=== PATIENT | male | born 1940 | race Caucasian/White ===

== ENCOUNTER 2023-08-22 02:04 | Observation (INO) | payer MEDICARE, BC, SELFPAY ==
[2023-08-22 02:00] VITALS: BP 228/116; PULSE 105; RESP 18; O2SAT 96
--- NOTE | 2023-08-22 02:18 | CRLHL7_ITS ---
For Patients: As a result of the Cures Act, medical imaging exams and procedure reports are released immediately into your electronic medical record. You may view this report before your referring provider. If you have questions, please contact your health care provider. INDICATION: Altered mental status. TECHNIQUE: Head CT without contrast. COMPARISON: October 2020. FINDINGS: Massive right hemispheric parenchymal hemorrhage versus ventricular hemorrhage filling the near entirety of the right ventricle with significant mass effects with effacement of the right hemisphere and 24 millimeters right to left midline shift. Blood products extend and track into the left lateral ventricular system as well as the 3rd ventricle. Diffuse right hemispheric white matter edema. No acute osseous abnormality. No extracalvarial soft tissue abnormality. The mastoid air cells are clear. The paranasal sinuses are well-aerated. The visualized portions of the orbits and globes are unremarkable. IMPRESSION: Massive right hemispheric parenchymal hemorrhage compressing the right lateral ventricle versus ventricular hemorrhage filling the near entirety of the right lateral ventricle with significant mass effect with effacement of the right hemispheric cortex and 24 millimeters right to left midline shift. Blood products extend and track into the left lateral ventricular system as well as the 3rd ventricle. Diffuse right hemispheric white matter edema. Findings communicated with Dr. Steward at 2:37 a.m. August 22, 2023. Please note that all CT scans at this facility use dose modulation, iterative reconstruction, and/or weight-based dosing when appropriate to reduce radiation dose to as low as reasonably achievable. Dictated by Jersey Hicks MD @ 08/22/2023 2:39:14 AM (Electronically Signed)
--- NOTE | 2023-08-22 02:18 | ED.AMS ---
HPI - Altered Mental Status General Time Seen by Provider: 01:58 Date Seen: 08/22/23 Chief Complaint: Altered Mental Status Stated Complaint: Stroke Time Seen by Provider: 08/22/23 02:18 Source: EMS Mode of arrival: EMS Limitations: altered mental status History of Present Illness HPI narrative: 82y/o male brought in by EMS. By report patient pressed is call button at living. On arrival, nurses report seizure activity. Per EMS, patient has been unresponsive since their arrival. Related Data Home Medications Medication Instructions Recorded Confirmed carbidopa ER 25 mg-levodopa 100 mg 1 tab PO TID 05/24/23 05/24/23 tablet,extended release clopidogrel 75 mg tablet 75 mg PO QDAY 05/24/23 05/24/23 donepezil 10 mg tablet 10 mg PO QDAY 05/24/23 05/24/23 lisinopril 10 mg tablet 10 mg PO QDAY 05/24/23 05/24/23 memantine 10 mg tablet 10 mg PO QPM 05/24/23 05/24/23 metformin 1,000 mg tablet 1,000 mg PO QDAY 05/24/23 05/24/23 rosuvastatin 20 mg tablet 20 mg PO QDAY 05/24/23 05/24/23 solifenacin 10 mg tablet 10 mg PO DAILY bladder pain 05/24/23 05/24/23 tamsulosin 0.4 mg capsule 0.4 mg PO QDAY 05/24/23 05/24/23 Previous Rx's Medication Instructions Recorded acetaminophen 325 mg capsule 650 mg (2 x 325 mg) PO Q4H PRN 05/24/23 pain #90 caps tramadol 50 mg tablet 50 mg PO Q6H PRN pain #30 tabs 05/24/23 Allergies Allergy/AdvReac Type Severity Reaction Status Date / Time No Known Drug Allergies Allergy Unknown Verified 05/24/23 13:08 [facility] Medical History (Updated 08/22/23 @ 02:51 by Alfredito Steward MD) Rib pain on left side ?R07.81 - Pleurodynia (ICD-10) Social History Non-prescribed substance use: denies use Exam Narrative: Exam Narrative: General: Unresponsive Head: Atraumatic and normocephalic Eyes: Right pupil dilated ENT: External nose and ears are normal, posterior pharynx without erythema or exudate Neck: No midline cervical tenderness, full spontaneous range of motion the neck, trachea midline, no adenopathy Heart: Regular rate and rhythm no murmurs or thrills Lungs: Clear to auscultation slow respirations Abdomen: Soft, nontender, nondistended with active bowel sounds Musculoskeletal: No tenderness, deformity, or edema Neurologic: Unresponsive to voice or pain, nonverbal, extension to painful stimuli, GCS 4 Skin: No rashes Course Course ED Course: Patient seen and examined on arrival. Unresponsive with dilated right pupil, spontaneous respirations. Went to CT with patient, noted massive ICH with effacement of the right ventricle and blood in the left ventricle, marked shift, and patient started having sonorous respirations. Given volume of hemorrhage, age and GCS 4 on arrival, this is not a survivable event, ICH score 5 with predicted 100% mortality. Discussed critical condition with spouse and son. Offered pre-arrest intubation, but this would not substantially influence course or prognosis other than prolonging process of . Family agreeable to DNR/DNI. Patient did have a brief apneic episode at 0215 and ongoing sonorous respirations now. Reevaluation(s) Time of Reevaluation #1: 02:33 Reevaluation #1: Family is bedside. Patient remains unresponsive and now is having decerebrate posturing. Care discussed with radiologist who agrees with my initial interpretation of CT. Time of Reevaluation #2: 02:43 Reevaluation #2: Care discussed with Dr. Carlton, hospitalist for comfort care admission. Recommends morphine for comfort care which is ordered. Family at bedside, updated them with plan for admission for end of life care. Time of Reevaluation #3: 03:15 Reevaluation #3: Transfer to floor. Medications Administered Medications: Generic Name Dose Route Start Last Admin Trade Name Freq PRN Reason Stop Dose Admin Lorazepam 0.5 mg 08/22/23 02:34 08/22/23 02:35 Lorazepam 2 Mg/Ml Inj IVP 08/22/23 02:35 0.5 mg ONCE ONE Administration Morphine Sulfate 4 mg 08/22/23 02:43 08/22/23 03:00 Morphine 4 Mg/Ml Inj IVP 08/22/23 02:44 4 mg ONCE ONE Administration Critical Care Time Critical Care Time Critical Care Time: Yes Attestation: The patient required my highest level preparedness to intervene emergently and I personally spent this critical care time directly and personally managing the patient. This critical care time included: Obtaining a history; Examining the patient; Pulse oximetry; Ordering and reviewing of studies; Arranging urgent treatment with development of a management plan; Evaluation of patients response to treatment; Frequent reassessment discussions with other providers. This critical care time was performed to assess and manage the high probability of imminent life-threatening deterioration that could result in multiorgan failure. It was exclusive of separate billable procedures and treating other patients and teaching time. Total Critical Care Time in Minutes: 55 Discharge Plan Discharge Clinical Impression: Unresponsive state, Intracranial hemorrhage Patient Disposition: Admitted As Observation Condition: Critical
[2023-08-22] MEDS: LORazepam 2 MG/ML inj 0.5 MG IVP (02:35)
[2023-08-22] MEDS: MORPHINE 4 MG/ML INJ IVP (03:00)
--- NOTE | 2023-08-22 03:02 | ED.NURSE ---
nurse to nurse report given to trent ALICEA
--- NOTE | 2023-08-22 03:41 | W.PM.TELEH&P ---
Telehealth- H&P: HPI History of Present Illness Date Seen: 08/22/23 Chief complaint: Stroke Narrative: Jersey Pedro is seen as an Interactive Telehealth visit. Jersey Pedro is a 82 year old male who presented to the emergency room via EMS after being found unresponsive at the [facility] facility that he currently resides. At the time I am seeing Jersey, he is unfortunately unresponsive and cannot provide me with any history. The history is received through the emergency room provider and also through the family members who are present with Jersey in the room at the time I am seeing him. Jersey has a significant past medical history of previous strokes and TIAs according to the family. Apparently, Jersey had pressed the call button and when staff arrived, he was noted to have seizure activity. Per EMS, the patient has been unresponsive since their arrival including transport to the emergency room. In the emergency room, Jersey was noted to have dilated fixed pupils and a CT scan of the head showed a massive intracranial hemorrhage with effacement of the right ventricle and blood in the left ventricle with significant shift. This was discussed with the family and due to his severe intracranial bleed that was deemed not to be compatible with meaningful life, Jersey was transition to comfort care measures and is currently being admitted to the medical service for ongoing comfort care measures. At the time I talked to the family, they are all in agreement that they would want Jersey to continue with comfort care measures. Again, Jersey is unresponsive and unable to provide me with any further history. Review of Systems Status of ROS: Reports: unobtainable due to medical condition [facility] Medical History Rib pain on left side ?R07.81 - Pleurodynia (ICD-10) Social History Non-prescribed substance use: denies use Meds Home Medications and Allergies Home Medications Medication Instructions Recorded Confirmed Type carbidopa ER 25 mg-levodopa 100 mg 1 tab PO TID 05/24/23 05/24/23 History tablet,extended release clopidogrel 75 mg tablet 75 mg PO QDAY 05/24/23 05/24/23 History donepezil 10 mg tablet 10 mg PO QDAY 05/24/23 05/24/23 History lisinopril 10 mg tablet 10 mg PO QDAY 05/24/23 05/24/23 History memantine 10 mg tablet 10 mg PO QPM 05/24/23 05/24/23 History metformin 1,000 mg tablet 1,000 mg PO QDAY 05/24/23 05/24/23 History rosuvastatin 20 mg tablet 20 mg PO QDAY 05/24/23 05/24/23 History solifenacin 10 mg tablet 10 mg PO DAILY bladder pain 05/24/23 05/24/23 History tamsulosin 0.4 mg capsule 0.4 mg PO QDAY 05/24/23 05/24/23 History Allergies Allergy/AdvReac Type Severity Reaction Status Date / Time No Known Drug Allergies Allergy Unknown Verified 05/24/23 13:08 Exam Narrative Exam Narrative: Physical Exam GENERAL: ?vital signs reviewed HEENT: pupils are dilated and unresponsive to light. HEART: Regular rate and rhythm without any rubs, murmurs, or gallops. LUNGS: Good air movement bilaterally. There is some upper airway crackles noted. ABDOMEN: Nondistended with minimal bowel sounds noted. EXTREMITIES: Currently not moving any extremities and is unresponsive. No edema is noted in lower extremities. SKIN:? Observed warm and dry with color normal Neuro: Unresponsive to verbal or tactile stimulus. Const Vital Signs, click to edit/add: Vital Signs - 24 hr 08/22/23 02:00 Pulse Rate [Pulse Oximeter] 105 H Respiratory Rate 18 Blood Pressure [Right Upper Arm] 228/116 H Pulse Oximetry 96 Oxygen Delivery Method Room Air Documenting provider has reviewed patient's vital signs: yes Assessment and Plan Assessment and plan (1) Intracranial hemorrhage: Status: Acute Plan Assessment: 1. Acute intracranial hemorrhage with extensive bleeding and midline shift not compatible with meaningful life 2. Unresponsive state due to #1 above 3. Comfort care measures for #1 and #2 above 4. Parkinson's dementia 5. Diabetes mellitus type 2 6. BPH Plan: At this time Jersey will be admitted to the medical unit with ongoing comfort care measures for his acute intercranial hemorrhage. With the extent of his hemorrhage and midline shift along with blown pupils, his current intracranial hemorrhage is not compatible with meaningful life. This discussion was had with the family in the emergency room and it was determined that Jersey would best be served with ongoing comfort care measures. This was confirmed again with his and number of family members were present with him in the room today. 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 Will provide medications as needed for ongoing comfort care. Will continue to follow from medical standpoint. Telehealth: Statement Statement Telehealth Visit: Today's History and Physical is provided via interactive telehealth by Pako Rashid MD.? Patient is located at [facility].? Provider is located at [facility].? Nursing staff assisted with the patient's exam. The visit being done today meets criteria for a telehealth visit and the patient or patient?s parent/guardian is aware the visit is a telehealth visit. Camera Start Time: 03:28 Camera End Time: 03:37
--- NOTE | 2023-08-22 03:42 | ED.NURSE ---
patients brief changed, linens changed, and patient changed into gown, new sheets. Patient transported to the floor with RN.
[2023-08-22] MEDS: MORPHINE 10 MG/0.5 ML ORAL SOLN PO ×3 (04:37→06:43)
[2023-08-22] MEDS: LORazepam 2 MG/ML inj IVP (05:34)
[2023-08-22] MEDS: SODIUM CHLORIDE 0.9 % (FLUSH) 10 ML SYRINGE 5 ML IVF (05:40)
--- NOTE | 2023-08-22 07:20 | PC.NURSE ---
pt arrived to the floor accompanied with 5 family members. Bilat pupils blown & unreactive to light. Agonal breathing noted. Morphine given. T&R. No output, brief clean at end of shift.
[2023-08-22] MEDS: fentaNYL 25 MCG/HR PATCH 1 PATCH TRANSDERMA (08:13)
--- NOTE | 2023-08-22 08:28 | P.DS_ITS ---
Discharge Sum: Prov Provider Time Seen by Provider: 08:28 Date Seen: 08/22/23 Primary care physician: Malachi Hanks MD Pronouncing clinician: Lyle Strong Discharge Sum: Diag Contributing Factors (1) Intracranial hemorrhage: Contributing factors: Chronic cerebrovascular disease Discharge Sum: Summary Date and Time Date of admission: 08/22/23 03:08 Date of : 08/22/23 Time of : 08:15 Summary Details: 82-year-old male admitted to the hospital during the night when he was found unresponsive at his memory care facility. He continued to be unresponsive through his hospital stay. On admission he was found to have a large intracranial hemorrhage causing severe midline shift. This bleeding episode was felt to be a terminal event. Discussion with the family indicated that he should be admitted for comfort cares and there were in agreement with this. Additional Data Confirmation of as documented by pronouncing clinician: no pulse and no respirations Family: at bedside Attending physician: Fransisca Cross MD Was code activated?: No Autopsy requested?: No operations examiner notified?: No Organ bank notified?: No Advance directives: Yes Hospice patient?: No
--- NOTE | 2023-08-22 08:37 | PC.NURSE ---
PATIENT'S AT BEDSIDE AND CALLED THAT PATIENT HAD PASSED. DR. HELM NOTIFIED AND TIME OF 814. [facility] NO DONATION DESIGNATED.
== END 2023-08-22 11:31 | disposition expired ==
LOC: ED 02:51 → MEDSURG 03:09
PROVIDERS: Admitting Provider Family Medicine; Emergency Provider Family Medicine; PCP Family Medicine; Visit Provider Family Medicine
DX: I62.9 Nontraumatic intracranial hemorrhage, unspecified (principal); R40.2212 Coma scale, best verbal response, none, at arrival to emergency department; I67.9 Cerebrovascular disease, unspecified; Z51.5 Encounter for palliative care; I10 Essential (primary) hypertension; Z86.79 Personal history of other diseases of the circulatory system; G20.A1 Parkinson's disease without dyskinesia, without mention of fluctuations; F02.80 Dementia in other diseases classified elsewhere, unspecified severity, without behavioral disturbance, psychotic disturbance, mood disturbance, and anxiety; E11.8 Type 2 diabetes mellitus with unspecified complications; N40.0 Benign prostatic hyperplasia without lower urinary tract symptoms; Z79.84 Long term (current) use of oral hypoglycemic drugs; Z66 Do not resuscitate
CPT/HCPCS: 70450; 96374; 96375; 99284; 99291; A9270; G0378; J2060; J2270

== ENCOUNTER 2023-08-22 21:00 | Outpatient (CLI) | payer MEDICARE, BC, SELFPAY | END 2023-08-22 21:01 | disposition home or self-care (01) | LOC: AMB 21:03 | PROVIDERS: PCP Family Medicine; Visit Provider Family Medicine | DX: R56.9 Unspecified convulsions (principal) | CPT/HCPCS: A0425; A0427 ==